=== PATIENT | male | born 1985 | race African-American/Black ===

== ENCOUNTER 2016-11-20 04:15 | Emergency (ER) | payer MEDICAID ==
[~2016-11-20] VITALS: Ht 182.9 cm; Wt 90.7 kg
[2016-11-20 08:14] VITALS: BP 114/68
== END 2016-11-20 08:41 | disposition home or self-care (01) ==
LOC: ER 04:16
DX: K04.7 Periapical abscess without sinus (principal); F17.210 Nicotine dependence, cigarettes, uncomplicated; Z88.0 Allergy status to penicillin